=== PATIENT | female | born 1955 | race Two or more races ===

== ENCOUNTER → 2021-02-22 | Outpatient (CLI) | payer MEDICARE, OTHER | END | disposition home or self-care (01) | LOC: XY 10:14 | PROVIDERS: ATTEND Podiatrist | DX: I70.201 Unspecified atherosclerosis of native arteries of extremities, right leg (principal); I77.9 Disorder of arteries and arterioles, unspecified | CPT/HCPCS: 93925 ==

== ENCOUNTER → 2021-12-17 | Outpatient (CLI) | payer MEDICARE, OTHER | END | disposition home or self-care (01) | LOC: LAB 10:35 | PROVIDERS: ATTEND Podiatrist Foot & Ankle Surgery | DX: E11.9 Type 2 diabetes mellitus without complications (principal) | CPT/HCPCS: 36415; 83036 ==

== ENCOUNTER → 2022-08-04 | Outpatient (CLI) | payer MEDICARE, OTHER ==
[2022-08-04 13:06] LABS: Albumin 3.6 g/dL (3.4-5.0); Calcium 8.8 mg/dL (8.5-10.1); Potassium 4.1 mmol/L (3.5-5.1)
[2022-08-04 13:10] LABS: BUN/Creatinine Ratio 17.8; Bilirubin, Total 0.2 mg/dL (0.2-1.0); Total Protein 7.2 g/dL (6.4-8.2)
[2022-08-04 13:53] LABS: Basophils # (auto) 0 10 ^3/uL (0-0.2); Basophils % (auto) 0.8 % (0.0-2.0); Eosinophils # (auto) 0.1 10 ^3/uL (0-0.8); Hemoglobin 8.9 g/dL (12.2-16.2); Lymphocytes # (auto) 1.4 10 ^3/uL (0.4-5.4); Neutrophils # (auto) 3.8 10 ^3/uL (1.6-8.6); Nucleated Red Blood Cells % 0.1 %
[2022-08-04 13:55] LABS: Eosinophils % (auto) 1.6 % (0.0-7.0); Hematocrit 28.3 % (36.0-46.0); Lymphocytes % (auto) 23.7 % (10.0-50.0); Mean Corpuscular Hemoglobin 22.9 pg (28.0-32.0); Mean Corpuscular Hgb Conc. 31.3 g/dL (32.0-36.0); Mean Corpuscular Volume 73.2 fL (80.0-100.0); Monocytes # (auto) 0.6 10 ^3/uL (0-1.3); Monocytes % (auto) 9.5 % (0.0-12.0); Neutrophils % (auto) 64.4 % (37.0-80.0); Red Blood Cells 3.87 10^6/uL (4.0-5.20); Red Cell Distribution Width 19.6 % (11.8-14.3); White Blood Cell 5.8 10^3/uL (4.4-10.8)
== END | disposition home or self-care (01) ==
LOC: LAB 12:06
PROVIDERS: ATTEND Internal Medicine
DX: I10 Essential (primary) hypertension (principal); E11.22 Type 2 diabetes mellitus with diabetic chronic kidney disease; E55.9 Vitamin D deficiency, unspecified
CPT/HCPCS: 36415; 80053; 80061; 82306; 83036; 84439; 84443; 85025

== ENCOUNTER 2022-09-25 15:24 | Emergency (ER) | payer OTHER, MEDICARE ==
[~2022-09-25] VITALS: Ht 157.5 cm; Wt 55.0 kg
[2022-09-25] MEDS ORDERED: FAMOTIDINE (10MG/ML) 2ML VL IV ONE (15:45)
[2022-09-25] MEDS ORDERED: methylPREDNISolone SOD SUCC 125 MG/2 ML VL IV ONE (15:45)
[2022-09-25] MEDS ORDERED: methylPREDNISolone SOD SUCC 125 MG/2 ML VL IM ONE (18:15)
[2022-09-25] MEDS ORDERED: METH4PAK PO (18:51)
[2022-09-25] MEDS ORDERED: FAMOTIDINE 20 MG TAB PO ONE (19:15)
[2022-09-25 19:20] VITALS: BP 168/66
== END 2022-09-25 19:20 | disposition home or self-care (01) ==
LOC: ER 15:24
DX: T78.40XA Allergy, unspecified, initial encounter (principal); Z88.6 Allergy status to analgesic agent; X58.XXXA Exposure to other specified factors, initial encounter
CPT/HCPCS: 96372; 99283; J2930; J3490

== ENCOUNTER → 2023-01-05 | Outpatient (CLI) | payer OTHER ==
[~2023-01-05] MED LIST: METH4PAK PO
[2023-01-05 09:41] LABS: Basophils # (auto) 0 10 ^3/uL (0-0.2); Basophils % (auto) 0.4 % (0.0-2.0); Eosinophils # (auto) 0.1 10 ^3/uL (0-0.8); Lymphocytes # (auto) 1.3 10 ^3/uL (0.4-5.4); Monocytes # (auto) 0.4 10 ^3/uL (0-1.3)
[2023-01-05 09:44] LABS: Eosinophils % (auto) 1.1 % (0.0-7.0); Hemoglobin 9.5 g/dL (12.2-16.2); Lymphocytes % (auto) 16.1 % (10.0-50.0); Mean Corpuscular Hemoglobin 23.2 pg (28.0-32.0); Mean Corpuscular Hgb Conc. 31.6 g/dL (32.0-36.0); Mean Corpuscular Volume 73.6 fL (80.0-100.0); Monocytes % (auto) 5.6 % (0.0-12.0); Neutrophils # (auto) 6.2 10 ^3/uL (1.6-8.6); Neutrophils % (auto) 76.8 % (37.0-80.0); Nucleated Red Blood Cells % 0.1 %; Red Blood Cells 4.08 10^6/uL (4.0-5.20); White Blood Cell 8.1 10^3/uL (4.4-10.8)
[2023-01-05 09:46] LABS: Red Cell Distribution Width 20.6 % (11.8-14.3)
[2023-01-05 10:41] LABS: Albumin 3.4 g/dL (3.4-5.0); Calcium 9.3 mg/dL (8.5-10.1); Potassium 4.7 mmol/L (3.5-5.1)
[2023-01-05 10:47] LABS: BUN/Creatinine Ratio 19.1 (10.0-20.0); Bilirubin, Total 0.3 mg/dL (0.2-1.0); Total Protein 7.7 g/dL (6.4-8.2)
[2023-01-05 10:52] LABS: Ferritin 10.2 ng/mL (10-322)
[2023-01-05 10:54] LABS: Free T4 (Free Thyroxine) 1.36 ng/dL (0.89-1.76)
== END | disposition home or self-care (01) ==
LOC: LAB 09:12
PROVIDERS: ATTEND Internal Medicine Hematology & Oncology
DX: D50.9 Iron deficiency anemia, unspecified (principal); Z98.84 Bariatric surgery status
CPT/HCPCS: 36415; 80053; 80061; 82728; 83540; 84439; 84443; 85025; 85045

== ENCOUNTER → 2023-03-06 | Outpatient (CLI) | payer OTHER | END | disposition home or self-care (01) | LOC: LAB 14:46 | PROVIDERS: ATTEND Internal Medicine Hematology & Oncology | DX: D50.9 Iron deficiency anemia, unspecified (principal); Z98.84 Bariatric surgery status | CPT/HCPCS: 82270 ==